=== PATIENT | male | born 1970 | race African-American/Black ===

== ENCOUNTER 2018-09-19 03:24 | Emergency (ER) | payer SELFPAY ==
[~2018-09-19] VITALS: Ht 195.6 cm; Wt 114.3 kg
[2018-09-19 03:25] VITALS: BP_SYST 138
--- NOTE | 2018-09-19 03:25 | NUR ---
Patient to ER bed 03 to gown for evaluation. Side rails up.
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
--- NOTE | 2018-09-19 03:30 | NUR ---
ER Sing at bedside for medical evaluation.
[2018-09-19] MEDS ORDERED: LIDOCAINE/EPI 2% 1:100000 20 ML VIAL INJ ONE (03:45)
[2018-09-19 04:00] VITALS: BP_SYST 138
--- NOTE | 2018-09-19 04:00 | NUR ---
Patient given written and verbal discharge instructions and verbalizes understanding. ER MD discussed with patient the results and treatment provided. Patient in stable condition. ID arm band removed. Rx of Amoxicillin given. Patient educated on pain management and to follow up with PMD. Pain Scale 0/10. Opportunity for questions provided and answered. Medication side effect fact sheet provided.
== END 2018-09-19 04:00 | disposition home or self-care (01) ==
LOC: SED 03:24
DX: S01.511A Laceration without foreign body of lip, initial encounter (principal); V89.2XXA Person injured in unspecified motor-vehicle accident, traffic, initial encounter; Y93.89 Activity, other specified; Y92.410 Unspecified street and highway as the place of occurrence of the external cause; Y99.8 Other external cause status
CPT/HCPCS: 99283